=== PATIENT | female | born 1950 | race Caucasian/White ===

== ENCOUNTER 2016-09-02 07:15 | Inpatient (IN) | payer OTHER, BC ==
--- NOTE | 2016-08-04 09:23 | HISTORY & PHYSICAL EXAMINATION ---
DATE OF ADMISSION: 09/02/2016 PROCEDURE: Left knee replacement. HISTORY OF PRESENT ILLNESS: The patient is a beny 66-year-old female who presents for preoperative evaluation prior to left knee replacement. She states she has been having pain in this knee for several years now which has gradually worsened, it has now gotten to the point it is affecting her daily activities including walking, standing, going up and down steps. She has tried previous cortisone injection as well as viscosupplementation without relief, has worn a brace as well as had previous knee arthroscopy in 2014. At this point in time, has failed conservative measures and would like to proceed with a left knee replacement. PAST MEDICAL HISTORY: 1. Hypertension. 2. GERD. 3. High cholesterol. 4. History of pulmonary embolism in 09/2015, related to malfunction of her chemo pump and was treated with 6 months of Coumadin. PAST SURGICAL HISTORY: 1. History of diagnostic laparoscopy with right hemicolectomy and instillation of heated chemo. 2. History of cystoscopy, right retrograde pyelogram, right ureteral stent placement. 3. Left cataract surgery. 4. Right cataract surgery. 5. Total abdominal hysterectomy. 6. Cystocele repair. 7. Right knee arthroscopy. 8. Appendectomy. ALLERGIES: No known drug allergies. MEDICATIONS: 1. Losartan 50 mg daily. 2. Omeprazole 20 mg daily. 3. Atorvastatin 10 mg daily. 4. Zofran 8 mg as needed. 5. Calcium with vitamin D. 6. Multivitamin. 7. Imodium. 8. Vitamin B12. 9. Potassium chloride 20 mEq daily. FAMILY HISTORY: Noncontributory. SOCIAL HISTORY: The patient is , lives in a 2-story home with her . She is retired. REVIEW OF SYSTEMS: Otherwise negative. Please see HPI for pertinent positives. PHYSICAL EXAMINATION: GENERAL: Beny 66-year-old female in no acute distress, alert and oriented x3. She is 5 feet 2 inches, weighs 146 pounds. VITAL SIGNS: Blood pressure is 128/76, pulse 74. HEENT: Normocephalic, atraumatic. CARDIAC: Regular rate and rhythm. No murmurs or gallops appreciated. Resting pulse 74 beats per minute. LUNGS: Clear to auscultation without rales or wheeze bilaterally. ABDOMEN: Soft, nontender. Bowel sounds present. EXTREMITIES: Left lower extremity is neurovascularly intact. Calves are soft and nontender. DP pulse +2. Demonstrates good quad tone. Straight leg raise without lag. No erythema or warmth. Has mild effusion. Positive crepitation with motion. Range of motion is 0/3/120. IMAGING: Reviewed of the left knee showed findings consistent with degenerative joint disease including joint space narrowing, subchondral sclerosis, peripheral osteophytes noted, overall has varus alignment. IMPRESSION: 1. Left knee degenerative joint disease. 2. Past medical history as outlined above. PLAN: Further care discussed with the patient. At this point in time, has failed conservative measures and would like to proceed with left knee replacement, is scheduled for 09/02/2016. Will obtain cardiac clearance, scheduled for 08/05/2016. Also has a history of pulmonary embolism in 09/2015 which was related to a malfunction of her chemo pump, has finished her Coumadin. We will plan on discharge home with home health physical therapy.
[2016-08-04 13:01] VITALS: BMI 27.0
--- NOTE | 2016-08-04 13:49 | PAT Medication Instructions ---
Service Date Aug 04, 2016. Current Home Medication List Atorvastatin (Lipitor), 10 MG PO QPM Calcium Carbonate-Vitamin D W/ (Caltrate 600 Plus), 1,200 MG PO QAM Cyanocobalamin (Vitamin B12 500MCG), 500 MCG PO QAM Lactobacillus-Inulin (Culturelle), 1 CAP PO QAM Loperamide Hcl (Imodium), 2 MG PO PRN Losartan Potassium (Cozaar), 50 MG PO QPM Methenamine Hippurate (Hiprex), 0.5 TAB PO HS Multivitamins/Minerals (Mvi With Minerals), 1 TAB PO QAM Nitrofurantoin Monohyd Macrocr (Macrobid), 100 MG PO QPM Omeprazole (Prilosec), 20 MG PO QAM Ondansetron Hcl (Zofran), 8 MG PO TID PRN for Nausea Potassium Ext Rel (Klor-Con), 20 MEQ PO QPM Medication Instructions For Your Scheduled Surgery - Hold the following medications the morning of surgery: Multivitamins/Minerals (Mvi With Minerals), 1 TAB PO QAM Lactobacillus-Inulin (Culturelle), 1 CAP PO QAM Calcium Carbonate-Vitamin D W/ (Caltrate 600 Plus), 1,200 MG PO QAM Cyanocobalamin (Vitamin B12 500MCG), 500 MCG PO QAM Loperamide Hcl (Imodium), 2 MG PO PRN - Take the following medications the morning of surgery with a sip of water OTHERWISE NOTHING TO EAT OR DRINK AFTER MIDNIGHT: Omeprazole (Prilosec), 20 MG PO QAM Ondansetron Hcl (Zofran), 8 MG PO TID PRN for Nausea - Take the following medications as scheduled the night before surgery: Atorvastatin (Lipitor), 10 MG PO QPM Potassium Ext Rel (Klor-Con), 20 MEQ PO QPM Ondansetron Hcl (Zofran), 8 MG PO TID PRN for Nausea Methenamine Hippurate (Hiprex), 0.5 TAB PO HS Nitrofurantoin Monohyd Macrocr (Macrobid), 100 MG PO QPM - Do Not take the following medications the night before surgery: Losartan Potassium (Cozaar), 50 MG PO QPM If you have any questions please call us at [phone] or [phone] or [phone]
[2016-08-04 15:00] LABS: BASO % 0.5 %; BASO ABS # 0.02 K/uL (0-0.2); COMPLETE YES; EOS % 2.7 %; HEMATOCRIT 35.2 % (37-47); IG% 0.2 %; LYMPH % 37.7 %; LYMPH ABS # 1.52 K/uL (1.2-3.4); MEAN CELL VOLUME 97.5 fL (80-100); MEAN CORPUSCULAR HEMOGLOBIN 34.6 pg (25-34); MEAN CORPUSCULAR HGB CONC 35.5 g/dl (32-36); MEAN PLATELET VOLUME 8.6 fL (7.4-10.4); MONO % 10.9 %; PLATELET COUNT 251 K/uL (130-400); RED BLOOD COUNT 3.61 M/uL (4.2-5.4); WHITE BLOOD COUNT 4.03 K/uL (4.8-10.8)
[2016-08-04 15:04] LABS: URINE APPEARANCE CLEAR (CLEAR); URINE BILIRUBIN NEG (NEG); URINE COLOR YELLOW; URINE NITRITE NEG (NEG); URINE PH 5.5 (4.5-7.5); URINE SPECIFIC GRAVITY 1.011 (1.000-1.030); UROBILINOGEN NEG (NEG); ZZUR CULT IF INDIC CLEAN CATCH NO
[2016-08-04 15:05] LABS: MANUAL MICROSCOPIC REQUIRED? NO; REVIEW REQ? NO
[2016-08-04 15:58] LABS: BUN/CREATININE RATIO 19.1 (10-20); CREATININE 0.75 mg/dl (0.60-1.20); POTASSIUM 3.8 mmol/L (3.5-5.1)
[2016-08-04 16:12] LABS: CALCIUM 9.4 mg/dl (8.5-10.1)
[2016-08-05 05:57] LABS: ESTIMATED AVERAGE GLUCOSE 103 mg/dl; HA1C FLAG Normal (Normal)
[~2016-09-02] VITALS: Ht 157.5 cm; Wt 66.6 kg
[2016-09-02] VITALS (8 sets, daily range): BP systolic 105–162; BP diastolic 56–82; PULSE 43–61; TEMP 36.2–36.7; O2SAT 96–100; Ht 157.5 cm; Wt 66.6 kg
[2016-09-02] MEDS: TRANEXAMIC ACID INJ 1,000 MG in SODIUM CHLORIDE 0.9% 100ML 100 ML IV SCH ×2 (06:30→08:23)
[~2016-09-02 07:15] MED LIST: ACETAMINOPHEN 500 MG TAB PO SCH; ATOR10TA88 PO; CALCTAB7 PO; CEFAZOLIN 2000 MG/60 ML D5W 60 ML IV SCH; CYAN500T13 PO; CeleBREX 200 MG CAP PO SCH; DEXAMETHASONE 4 MG TAB PO SCH; FAMOTIDINE 20 MG TAB PO SCH; GABAPENTIN 300 MG CAP PO SCH; IMD/2 PO; LACT10CA3 PO; LACTATED RINGER'S 1000ML 1,000 ML IV SCH; LACTATED RINGER'S 1000ML 500 ML IV ONE; LACTATED RINGER'S 1000ML IV SCH; LOSA50TA6 PO; METH-1117 PO; METOCLOPRAMIDE HCL 10 MG TAB PO SCH; MULT-513 PO; NITR-5 PO; ONDA4TAB46 PO; POTA20TA16 PO; PRLSR20 PO; ROPIVACAINE 5MG/ML 30 ML 150 MG, BUPIVACAINE/EPINEPHR 0.5% MPF 30 ML, KETOROLAC TROMETH... INFIL SCH
[2016-09-02] MEDS ORDERED: BUPIVACAINE 0.5 % 5 MG/1 ML PF 10ML VIAL ONE (07:16)
[2016-09-02] MEDS ORDERED: BUPIVACAINE 0.25% 30 ML VIAL ONE (07:17)
[2016-09-02] MEDS ORDERED: ASPI325T45 PO (08:07)
[2016-09-02] MEDS ORDERED: MIDAZOLAM HCL 1 MG/ML 2ML VIAL ONE (08:14)
[2016-09-02] MEDS ORDERED: FENTANYL CITRATE INJ 50 MCG/1 ML 2 ML VIAL ONE (08:14)
--- NOTE | 2016-09-02 08:20 | History & Physical Bridge Note ---
H&P Re-Evaluation Bridge Note: I have examined the patient, reviewed the History & Physical and in the interval since the performance of the History & Physical I have noted the following changes of clinical significance: No changes noted
[2016-09-02] MEDS ORDERED: POVIDONE-IODINE OP SOLN 30 ML BTL ONE (08:48)
[2016-09-02] MEDS ORDERED: ORTHO JOINT ANESTHETIC ONE (08:48)
[2016-09-02] MEDS ORDERED: BACITRACIN 50000 UNIT VIAL ONE (08:49)
[2016-09-02] MEDS ORDERED: PROPOFOL IV EMULSION 10 MG/ML 20 ML VIAL IV ONE (09:57)
[2016-09-02] MEDS ORDERED: ONDANSETRON INJ 2 MG/ML 2 ML VIAL IV PRN (10:30)
[2016-09-02] MEDS ORDERED: EpHEDrine SULFATE INJ 50 MG/ML AMP IV PRN (10:30)
[2016-09-02] MEDS ORDERED: KETOROLAC TROMETHAMINE 30 MG/ML VIAL IV. PRN (10:30)
[2016-09-02] MEDS ORDERED: ATROPINE SULFATE 0.1 MG/ML 5ML SYR IV PRN (10:30)
[2016-09-02] MEDS ORDERED: HYDROmorphone INJ 2 MG/ML SYR/VIAL IV PRN (10:30)
[2016-09-02] MEDS ORDERED: PHENYLEPHRINE 100MCG/ML 5ML SYR IV PRN (10:30)
--- NOTE | 2016-09-02 10:33 | [facility] Operative Report ---
Operative Report Operative Date Sep 02, 2016. Pre-Operative Diagnosis Left Knee Degenerative Joint Disease Post-Operative Diagnosis Same as preop Procedure(s) Performed Left Total Knee Arthrhoplasty [facility] journey to non-block/3 femur 3 tibia 13 poly-[address] Summers Health Care Manager Surgeon(s) Luis Mirza PA-C Estimated Blood Loss 5 ml Findings Severe end-stage DJD left knee Specimens A. Left Knee Bone and Tissue Complication(s) None Disposition Recovery Room / PACU Indications Patient felt into conservative management and physical therapy injections bracing and anti-inflammatories percents returning orthoplastic thorough discussion of risks and complications Description of Procedure After proper prepping and draping of the left lower extremity anterior midline incision was made over the region of the extensor extensor mechanism after meticulous hemostasis was obtained and maintained in subcutaneous tissues a medial parapatellar incision was made The patella was subluxed lateralward the medial lateral gutter were cleaned from any hypertrophic synovitis and scar tissue of the distal femoral block was placed and the distal femoral osteotomy cut was made subsequently the chamfers anterior and posterior osteotomy cuts were made utilizing the 4-in-1 block the tibia was subsequently subluxed anteriorward medial and ateral meniscal remnants were excised in their entirety remnants of the anterior and posterior cruciate ligaments were excised in their entirety excellent exposure of the proximal tibia was obtained the tibial osteotomy guide was placed on the proximal tibial osteotomy cut was made once again the knee was irrigated with copious amounts of sterile saline solution the patella was subsequently everted lateralward thickened scar tissue around the patella was removed the patella was subsequently cut utilizing a freehand technique and was drilled prepared for final preparation and placement of patella socially flexion-extension gaps were checked and the equal and symmetric trials were placed to the appropriate femoral and tibial trials with poly-spacer being placed for equal flexion and extension gaps and full range of motion including extension to 0 and flexion to 140 the trial components after having been taken to recovery range of motion was subsequently removed meticulous hemostasis was obtained and maintained subsequently a knee block injection of joint cocktail including ropivacaine 0.5% 150 mg. Bupivacaine 0.5 % epinephrine 1-200,030 mL's toradol 30 mg dexamethasone 4 mg ketamine 10 mg clonidine 100 micrograms normal saline solution 30 mg was infiltrated into the soft tissues of the posterior knee medial lateral gutters and periosteal synovium special attention was paid to protect neurovascular structures at all times subsequently trial components having been removed the knee was irrigated with sterile saline solution. debris was removed the proximal tibia was subsequently prepared and was made ready for the placement of the tibial component tibial component was also cemented and tamped into position the femoral component was subsequently placed and cemented in the position the patellar component was subsequently cemented in position because hemostasis once again obtained and maintained wound having been thoroughly irrigated with debridement and debridement lavage was performed as well as a medial parapatellar incision closed with #1 Vicryl in interrupted fashion subcutaneous was closed with #2 Vicryl skin was closed with skin clips. PA-C was necessary for prepping and drapping as well as wound closure of deep fascia Sub cutaneous tissue and skin and was necessary for the case. A sterile compressive dressing was placed patient was taken to recovery in stable condition of report dictated by Kristopher I attest to the content of the Intraoperative Record and any orders documented therein. Any exceptions are noted below. I attest to the content of the Intraoperative Record and any orders documented therein. Any exceptions are noted below.
[2016-09-02] MEDS ORDERED: MAGNESIUM HYDROXIDE SUSP 30 ML UDC PO PRN (11:15)
[2016-09-02] MEDS ORDERED: SOD PHOSPHATE/SOD BIPHOSPHATE ENEMA 132 ML BTL PR PRN (11:15)
[2016-09-02] MEDS ORDERED: MoRPHine SULFATE 2 MG/ML CARP IV PRN (11:15)
[2016-09-02] MEDS ORDERED: ZOLPIDEM TARTRATE 5 MG TAB PO PRN (11:15)
[2016-09-02] MEDS ORDERED: KETOROLAC TROMETHAMINE 15 MG/ML VIAL IV PRN (11:15)
[2016-09-02] MEDS ORDERED: BISACODYL 10 MG SUPP PR PRN (11:15)
[2016-09-02] MEDS ORDERED: ALUMINUM/MAGNESIUM/SIMETH (MAALOX MAX) 30 ML UDC PO PRN (11:15)
--- NOTE | 2016-09-02 11:51 | Anesthesiology Progress Note ---
Anesthesia Post Op Note Date & Time Sep 02, 2016 at 11:51 Vital Signs Pain Intensity: 0 Vital Signs Past 12 Hours Date Time Temp Pulse Resp B/P (MAP) Pulse Ox O2 Delivery O2 Flow Rate FiO2 09/02/16 11:47 36.4 09/02/16 11:46 123/64 09/02/16 11:45 47 15 99 09/02/16 11:45 46 15 09/02/16 11:41 114/63 09/02/16 11:40 48 16 09/02/16 11:40 48 16 97 09/02/16 11:39 48 12 98 09/02/16 11:39 48 12 09/02/16 11:37 117/61 09/02/16 11:34 50 18 09/02/16 11:34 50 18 100 09/02/16 11:31 136/66 09/02/16 11:29 53 12 09/02/16 11:29 52 12 100 09/02/16 11:26 108/62 09/02/16 11:24 53 12 09/02/16 11:24 52 12 100 09/02/16 11:21 119/64 09/02/16 11:19 53 12 100 09/02/16 11:19 53 12 09/02/16 11:16 98/61 09/02/16 11:14 58 15 09/02/16 11:14 54 15 100 09/02/16 11:13 117/63 09/02/16 11:11 110/62 09/02/16 11:10 116/61 09/02/16 11:09 36.6 58 18 116/62 99 Mask 10 09/02/16 11:09 62 09/02/16 11:09 62 93 09/02/16 07:43 36.7 61 20 162/82 98 Room Air Notes Mental Status: alert / awake / arousable, participated in evaluation Pt Amnestic to Procedure: Yes Nausea / Vomiting: adequately controlled Pain: adequately controlled Airway Patency, RR, SpO2: stable & adequate BP & HR: stable & adequate Hydration State: stable & adequate Anesthetic Complications: no major complications apparent
--- NOTE | 2016-09-02 12:04 | DIAGNOSTIC IMAGING REPORT ---
LEFT KNEE 1 OR 2 VIEWS ROUTINE CLINICAL HISTORY: AP/LATERAL IN PACU LEFT KNEE postoperative evaluation COMPARISON: None. DISCUSSION: Total left knee arthroplasty. Good contact between prosthetic and underlying bone. Surgical drains are in position. Expected soft tissue postoperative change IMPRESSION: Anatomic alignment status post total left knee replacement The above report was generated using voice recognition software. It may contain grammatical, syntax or spelling errors. Electronically signed by: Luis Saldaña M.D. 09/02/2016 12:03 PM Dictated Date/Time: 09/02/2016 12:03 PM
[2016-09-02] MEDS ORDERED: MoRPHine SULFATE 4 MG/ML 1 ML CARP\\VIAL IV PRN (12:45)
[2016-09-02] MEDS ORDERED: MoRPHine SULFATE 10 MG/ML CARP/VIAL IV PRN (12:45)
[2016-09-02] MEDS: D5W AND 1/2NSS + 20MEQ KCL 1,000 ML IV SCH ×2 (13:29→23:02)
[2016-09-02] MEDS: ACETAMINOPHEN 500 MG TAB PO SCH ×2 (15:10→21:56)
[2016-09-02] MEDS: CEFAZOLIN IV 1,000 MG in DEXTROSE 5% 50ML 50 ML IV SCH (18:13)
[2016-09-02] MEDS: OXYCODONE HCL IR 5 MG TAB (IMMEDIATE RELEASE) PO PRN (18:47)
[2016-09-02] MEDS: POTASSIUM CHLORIDE 20 MEQ TABCR PO SCH (21:34)
[2016-09-02] MEDS: NITROFURANTOIN MONOHYDRATE 100 MG CAP PO SCH (21:34)
[2016-09-02] MEDS: OXYCODONE HCL 10 MG TABCR (OXYCONTIN) PO SCH (21:34)
[2016-09-02] MEDS: ASPIRIN 325 MG ECTAB PO SCH (21:35)
[2016-09-02] MEDS: ATORVASTATIN 10 MG TAB PO SCH (21:36)
[2016-09-02] MEDS: SENNA 8.6 MG TAB PO SCH (21:36)
[2016-09-02] MEDS: DOCUSATE SODIUM 100 MG CAP PO SCH (21:37)
[2016-09-02] MEDS: LOSARTAN POTASSIUM 50 MG TAB PO SCH (21:37)
[2016-09-02] MEDS: METHENAMINE HIPPURATE 1 GM TAB PO SCH (21:38)
[2016-09-03] VITALS (7 sets, daily range): BP systolic 103–130; BP diastolic 51–71; PULSE 50–78; TEMP 36.4–36.9; O2SAT 96–100
[2016-09-03] MEDS: CEFAZOLIN IV 1,000 MG in DEXTROSE 5% 50ML 50 ML IV SCH (02:13)
[2016-09-03] MEDS: OXYCODONE HCL IR 5 MG TAB (IMMEDIATE RELEASE) PO PRN ×3 (02:20→15:55)
[2016-09-03] MEDS: ACETAMINOPHEN 500 MG TAB PO SCH ×3 (05:53→21:09)
[2016-09-03 06:46] LABS: HEMATOCRIT 28.6 % (37-47); MEAN CELL VOLUME 97.9 fL (80-100); MEAN CORPUSCULAR HEMOGLOBIN 34.6 pg (25-34); MEAN CORPUSCULAR HGB CONC 35.3 g/dl (32-36); MEAN PLATELET VOLUME 7.9 fL (7.4-10.4); PLATELET COUNT 183 K/uL (130-400); RED BLOOD COUNT 2.92 M/uL (4.2-5.4); WHITE BLOOD COUNT 12.87 K/uL (4.8-10.8)
[2016-09-03 06:51] LABS: PROTHROMBIN TIME (PATIENT) 10.8 SECONDS (9.0-12.0)
[2016-09-03 07:20] LABS: BUN/CREATININE RATIO 20.3 (10-20); CALCIUM 8.7 mg/dl (8.5-10.1); CREATININE 0.74 mg/dl (0.60-1.20); POTASSIUM 4.5 mmol/L (3.5-5.1)
--- NOTE | 2016-09-03 08:02 | Anesthesiology Progress Note ---
Anesthesia Post Op Note Date & Time Sep 03, 2016 at 08:02 Vital Signs Pain Intensity: 7.0 Vital Signs Past 12 Hours Date Time Temp Pulse Resp B/P (MAP) Pulse Ox O2 Delivery O2 Flow Rate FiO2 09/03/16 04:32 36.4 56 14 104/61 (75) 98 Room Air 09/02/16 23:40 Room Air 09/02/16 22:56 36.6 51 14 105/60 (75) 97 Room Air 09/02/16 20:41 36.6 54 18 118/71 (87) 98 Room Air Notes Mental Status: alert / awake / arousable, participated in evaluation Pt Amnestic to Procedure: Yes Nausea / Vomiting: adequately controlled Pain: adequately controlled Airway Patency, RR, SpO2: stable & adequate BP & HR: stable & adequate Hydration State: stable & adequate Anesthetic Complications: no major complications apparent
[2016-09-03] MEDS: DOCUSATE SODIUM 100 MG CAP PO SCH ×2 (08:31→21:12)
[2016-09-03] MEDS: MULTIVITAMIN TAB PO SCH (08:32)
[2016-09-03] MEDS: PANTOprazole SOD 40 MG TAB PO SCH (08:32)
[2016-09-03] MEDS: CYANOCOBALAMIN 500 MCG TAB (VIT B-12) PO SCH (08:32)
[2016-09-03] MEDS: ASPIRIN 325 MG ECTAB PO SCH ×2 (08:32→21:12)
[2016-09-03] MEDS: OXYCODONE HCL 10 MG TABCR (OXYCONTIN) PO SCH ×2 (08:35→21:09)
[2016-09-03] MEDS: D5W AND 1/2NSS + 20MEQ KCL 1,000 ML IV SCH (09:36)
--- NOTE | 2016-09-03 11:50 | Orthopedic Progress Note ---
Orthopedic Progress Note Date of Service Sep 03, 2016. Subjective Post OP Day: 1 (s/p left TKA) Reports: feeling well, pain controlled w PO medications, Denies: complaints, chest pain, SOB, nausea / vomiting, light headedness, calf pain Objective calves soft nontender, N/V intact, capillary refill less than 2 sec., dressing C /D/I, A&O x3, toes mobile Date Time Temp Pulse Resp B/P (MAP) Pulse Ox O2 Delivery O2 Flow Rate FiO2 09/03/16 09:17 97 Room Air 09/03/16 09:15 36.7 52 18 118/68 (85) 97 Room Air 09/03/16 08:00 Room Air 09/03/16 04:32 36.4 56 14 104/61 (75) 98 Room Air 09/02/16 23:40 Room Air 09/02/16 22:56 36.6 51 14 105/60 (75) 97 Room Air 09/02/16 20:41 36.6 54 18 118/71 (87) 98 Room Air 09/02/16 16:00 Room Air 09/02/16 15:13 36.2 55 18 115/64 (81) 100 Room Air 09/02/16 14:07 36.5 48 18 115/73 (87) 100 Nasal Cannula 2.0 09/02/16 13:17 36.4 56 18 110/70 (83) 99 Nasal Cannula 2.0 09/02/16 12:37 36.7 43 17 111/60 (77) 99 Nasal Cannula 2.0 09/02/16 12:10 96 Mask 2.0 09/02/16 12:10 96 Oxymask 2.0 09/02/16 12:10 36.3 56 18 131/56 (81) 96 Oxymask 2.0 09/02/16 11:57 45 19 128/61 100 09/02/16 11:57 45 19 09/02/16 11:52 47 16 09/02/16 11:52 46 16 122/62 100 Laboratory Results 24 Hours: Test 09/03/16 06:27 Hematocrit 28.6 % Hemoglobin 10.1 g/dL Prothromb Time International Ratio 1.0 Prothrombin Time 10.8 SECONDS Assessment & Plan Assessment: pod #1 sp left tka -pt/ot dvt proph jasper/scd/asa plan for dc home with HHPT 1. Hypertension. 2. GERD. 3. High cholesterol. 4. History of pulmonary embolism in 09/2015, related to malfunction of her chemo pump and was treated with 6 months of Coumadin. Inhouse Planning DVT Prophylaxis: José Miguel SCDs, ASA Discharge Planning Discharge Planning: home with home health DVT Prophylaxis: José Miguel SCDs ASA Therapy: Physical Therapy
[2016-09-03] MEDS: ONDANSETRON INJ 2 MG/ML 2 ML VIAL IV PRN (13:38)
--- NOTE | 2016-09-03 17:35 | Discharge Instructions ---
Discharge Instructions Date of Service Sep 03, 2016. Admission Reason for Admission: Left Knee Osteoarthritis Discharge Discharge Diagnosis / Problem: left knee replacement Discharge Goals Goal(s): Decrease discomfort, Improve function, Increase independence Activity Recommendations Activity Limitations: as noted below Weightbearing Status: Left weightbearing (as tolerated) . Instructions / Follow-Up Instructions / Follow-Up ACTIVITY RECOMMENDATIONS: SELF CARE INSTRUCTIONS AFTER TOTAL KNEE REPLACEMENT A. You may need to continue a physical therapy program after discharge from the hospital. There are several options available to you. Your doctor will assist you in selecting the best one for you. 1. An out-patient facility 2 to 3 times a week for therapy or home therapy. 2. Continue working on all exercises taught to you in the hospital. Your goals should be to increase bending of your knee to 90 degrees and beyond and to fully straighten your knee. B. You may progress at your own pace from walking with a walker or crutches to a cane; then to no assistive devices. C. Make walking a part of your daily routine. Be up as much as comfortable with rest periods throughout the day. Rest with leg elevation is very important. Use the ice wrap frequently for the first 3-4 weeks. D. There are no restrictions on activities. You may ride in a car, shop, participate in health information provider and all social activities. E. Wear the long elastic stockings (VIKRAM hose) 20 hours a day for 2 weeks after surgery. They can be removed several times a day for laundering and for a bath. F. You may shower, no tub baths until cleared by your doctor. SPECIAL CARE INSTRUCTIONS: VERY IMPORTANT TO READ AND REVIEW A. There are a few signs you need to watch for after you are home. Call [facility] if you notice any of the followin. Increased severe knee pain. Some pain is expected especially when you exercise. 2. Increased swelling in your leg or knee; pain or swelling of the calf muscle in either lower leg. 3. Any fluid drainage from the incision. 4. Shortness of breath or chest pain. B. Please call [facility] at if you have any concerns or questions about your operation or recovery. The doctor or his nurse will return your call promptly. C. You must take antibiotics before dental work, bladder, bowel or other surgery. Your doctor will provide you with a permanent care to carry describing this precaution. IMPORTANT: * REMEMBER TO TAKE ASPIRIN, 81 MG, TWICE DAILY FOR 4 WEEKS UNLESS OTHERWISE DIRECTED. THIS IS YOUR BLOOD THINNER. * HIGH RISK PATIENTS MAY BE PRESCRIBED A STRONGER BLOOD THINNER. THIS WILL BE PROVIDED AT DISCHARGE. * CALL IF INCREASED PAIN, REDNESS, DRAINAGE OR FEVER GREATER THAT 101. * WEAR VIKRAM HOSE 20 HOURS PER DAY FOR 2 WEEKS. DERMABOND Prineo- This is a mesh tape dressing that is covered with glue. It should remain in place until the incision is properly healed, usually 10-14 days. This dressing is designed to naturally slough off. You may trim the excess mesh tape as it peels off. Incision may be briefly wet in a shower. Dry immediately by blotting with a clean, dry towel. Do not bath or swim until instructed by your doctor. Do not scratch, rub, or pick at the dressing. Do not apply any topical ointments or lotions until dressing is completely removed and/or instructed by your doctor. There may be a small piece of suture material at one end of your incision. Do not pull or trim this. If it is bothersome or catching on clothing, you may cover it with a band-aid. FOLLOW UP VISIT: If appointment is not already scheduled: Please call [facility] to make a follow-up appointment for 2 weeks after your surgery at . Current Hospital Diet Patient's current hospital diet: Regular Diet Discharge Diet Recommended Diet: Regular Diet Procedures Procedures Performed: Left Total Knee Arthrhoplasty [facility] journey to nonblock/3 femur 3 tibia 13 poly-29 oval patella Pending Studies Studies pending at discharge: no Laboratory Results Hemoglobin A1c Test 08/04/16 13:55 Range/Units Estimated Average Glucose 103 mg/dl Hemoglobin A1c 5.2 4.5-5.6 % Medical Emergencies . Who to Call and When: Medical Emergencies: If at any time you feel your situation is an emergency, please call 911 immediately. . Non-Emergent Contact Non-Emergency issues call your: Primary Care Provider, Surgeon . "Provider Documentation" section prepared by Luis Mirza. . VTE Core Measure Inpt VTE Proph given/why not?: Other Anticoagulation (ASA 81mg po bid x 1 month ), TAshlie Koenig, SCD's [place] Drug Monitoring Program Search Results: patient reviewed within database, no issues identified
[2016-09-03] MEDS: POTASSIUM CHLORIDE 20 MEQ TABCR PO SCH (21:10)
[2016-09-03] MEDS: METHENAMINE HIPPURATE 1 GM TAB PO SCH (21:10)
[2016-09-03] MEDS: NITROFURANTOIN MONOHYDRATE 100 MG CAP PO SCH (21:10)
[2016-09-03] MEDS: SENNA 8.6 MG TAB PO SCH (21:11)
[2016-09-03] MEDS: ATORVASTATIN 10 MG TAB PO SCH (21:12)
[2016-09-03] MEDS: LOSARTAN POTASSIUM 50 MG TAB PO SCH (21:13)
[2016-09-04] MEDS: OXYCODONE HCL IR 5 MG TAB (IMMEDIATE RELEASE) PO PRN ×2 (03:39→08:05)
[2016-09-04] MEDS: ACETAMINOPHEN 500 MG TAB PO SCH ×2 (06:01→14:12)
[2016-09-04 06:03] VITALS: BP 154/69; PULSE 64; TEMP 36.9; O2SAT 100
[2016-09-04] MEDS: OXYCODONE HCL 10 MG TABCR (OXYCONTIN) PO SCH (08:04)
[2016-09-04] MEDS: ASPIRIN 325 MG ECTAB PO SCH (08:06)
[2016-09-04] MEDS: PANTOprazole SOD 40 MG TAB PO SCH (08:06)
[2016-09-04] MEDS: CYANOCOBALAMIN 500 MCG TAB (VIT B-12) PO SCH (08:06)
[2016-09-04] MEDS: DOCUSATE SODIUM 100 MG CAP PO SCH (08:06)
[2016-09-04] MEDS: MULTIVITAMIN TAB PO SCH (08:07)
[2016-09-04 08:15] VITALS: BP 158/88; PULSE 58; TEMP 36.8; O2SAT 100
[2016-09-04 08:19] VITALS: O2SAT 100
[2016-09-04] MEDS: ONDANSETRON INJ 2 MG/ML 2 ML VIAL IV PRN (11:12)
--- NOTE | 2016-09-04 12:22 | Orthopedic Progress Note ---
Orthopedic Progress Note Date of Service Sep 04, 2016. Subjective Post OP Day: 2 Reports: feeling well Objective calves soft nontender, N/V intact, incision C/D/I, toes mobile Date Time Temp Pulse Resp B/P (MAP) Pulse Ox O2 Delivery O2 Flow Rate FiO2 09/04/16 08:19 100 Room Air 09/04/16 08:15 36.8 58 16 158/88 (111) 100 Room Air 09/04/16 07:59 Room Air 09/04/16 06:03 36.9 64 19 154/69 (97) 100 Room Air 09/03/16 23:30 36.9 59 16 112/51 (71) 98 Room Air 09/03/16 23:18 Room Air 09/03/16 16:00 Room Air 09/03/16 15:43 36.7 50 16 130/71 (90) 98 Room Air 09/03/16 14:45 36.8 78 16 103/65 (78) 96 Nasal Cannula 2.0 Assessment & Plan Assessment: pod #2 sp left tka -pt/ot dvt proph jasper/scd/asa plan for dc home with HHPT 1. Hypertension. 2. GERD. 3. High cholesterol. 4. History of pulmonary embolism in 09/2015, related to malfunction of her chemo pump and was treated with 6 months of Coumadin. Inhouse Planning DVT Prophylaxis: TEDs, SCDs, ASA Discharge Planning Discharge Planning: home with home health DVT Prophylaxis: TEDs, SCDs, ASA Therapy: Physical Therapy
[2016-09-04] MEDS ORDERED: ACET-24 PO (12:24)
[2016-09-04] MEDS ORDERED: CLB200 PO (12:24)
[2016-09-04] MEDS ORDERED: RXC5 PO (12:24)
[2016-09-04] MEDS ORDERED: OXYSR10 PO (12:24)
[2016-09-04 13:31] VITALS: BP 158/88; PULSE 58; TEMP 36.8; O2SAT 100
--- NOTE | 2016-09-04 19:05 | Discharge Summary ---
Orthopedic Discharge Summary Admission Date/Reason Sep 02, 2016 at 08:00 Left Knee Osteoarthritis. Discharge Date/Disposition Sep 04, 2016 Home with services Diagnosis Principal Diagnosis: Left Knee Osteoarthritis Procedure(s) Performed Left Total Knee Arthrhoplasty [facility] journey to non-block/3 femur 3 tibia 13 poly-29 oval patella Consultations NONE Medication Reconciliation New Medications: Acetaminophen (Sb Non-Aspirin Extra Stre) 500 Mg Tab 1000 MG PO Q8H for 30 Days, TAB Celecoxib (Celebrex) 200 Mg Cap 200 MG PO BID, #60 CAP Oxycodone HCl (Oxycontin) 10 Mg Tabcr 10 MG PO Q12, #20 Oxycodone HCl (Oxycodone HCl) 5 Mg Tab 5-10 MG PO Q4-6 PRN for Pain, #60 TAB Continued Medications: Aspirin (Aspirin) 325 Mg Tab 325 MG PO BID Atorvastatin (Lipitor) 10 Mg Tab 10 MG PO QPM Calcium Carbonate-Vitamin D W/ (Caltrate 600 Plus) 1 Tab Tab 1200 MG PO QAM, TAB Cyanocobalamin (Vitamin B12 500MCG) 500 Mcg Tab 500 MCG PO QAM, TAB Lactobacillus-Inulin (Culturelle) 1 Cap Cap 1 CAP PO QAM Loperamide Hcl (Imodium) 2 Mg Cap 2 MG PO PRN, CAP Losartan Potassium (Cozaar) 50 Mg Tab 50 MG PO QPM, TAB Methenamine Hippurate (Hiprex) 1 Gm Tab 0.5 TAB PO HS Multivitamins/Minerals (Mvi With Minerals) Tab 1 TAB PO QAM, TAB Nitrofurantoin Monohyd Macrocr (Macrobid) 100 Mg Cap 100 MG PO QPM, #6 CAP Omeprazole (Prilosec) 20 Mg Capcr 20 MG PO QAM, CAP Ondansetron Hcl (Zofran) 4 Mg Tab 8 MG PO TID PRN for Nausea PT ALTERNATES WITH COMPAZINE Potassium Ext Rel (Klor-Con) 20 Meq Tabcr 20 MEQ PO QPM, TAB Admission Physical Exam As per Admitting History & Physical. Hospital Course Patient was a same day admission after undergoing a successful left TKA. she tolerated the procedure well. Post-operatively, her activity was progressed and well tolerated. Please refer to daily progress notes and PT notes for complete details. After exam on 09/04/16, patient felt to be stable for discharge home with HHPT. Patient will f/u in the office in 2 weeks for further evaluation including x-rays and incision check, sooner if having any issues or concerns. Below are pertinent labs/studies during their hospital stay: Last Vital Signs Documentation Date Time Temp Pulse Resp B/P (MAP) Pulse Ox O2 Delivery O2 Flow Rate FiO2 09/04/16 13:31 36.8 58 16 100 Room Air 09/04/16 08:15 158/88 (111) 09/03/16 14:45 2.0 Last Resulted CBC 09/03/16 06:27 Last Resulted BMP 09/03/16 06:27 Discharge Instructions ACTIVITY RECOMMENDATIONS: SELF CARE INSTRUCTIONS AFTER TOTAL KNEE REPLACEMENT A. You may need to continue a physical therapy program after discharge from the hospital. There are several options available to you. Your doctor will assist you in selecting the best one for you. 1. An out-patient facility 2 to 3 times a week for therapy or home therapy. 2. Continue working on all exercises taught to you in the hospital. Your goals should be to increase bending of your knee to 90 degrees and beyond and to fully straighten your knee. B. You may progress at your own pace from walking with a walker or crutches to a cane; then to no assistive devices. C. Make walking a part of your daily routine. Be up as much as comfortable with rest periods throughout the day. Rest with leg elevation is very important. Use the ice wrap frequently for the first 3-4 weeks. D. There are no restrictions on activities. You may ride in a car, shop, participate in water engineer and all social activities. E. Wear the long elastic stockings (VIKRAM hose) 20 hours a day for 2 weeks after surgery. They can be removed several times a day for laundering and for a bath. F. You may shower, no tub baths until cleared by your doctor. SPECIAL CARE INSTRUCTIONS: VERY IMPORTANT TO READ AND REVIEW A. There are a few signs you need to watch for after you are home. Call [facility] if you notice any of the followin. Increased severe knee pain. Some pain is expected especially when you exercise. 2. Increased swelling in your leg or knee; pain or swelling of the calf muscle in either lower leg. 3. Any fluid drainage from the incision. 4. Shortness of breath or chest pain. B. Please call [facility] at if you have any concerns or questions about your operation or recovery. The doctor or his nurse will return your call promptly. C. You must take antibiotics before dental work, bladder, bowel or other surgery. Your doctor will provide you with a permanent care to carry describing this precaution. IMPORTANT: * REMEMBER TO TAKE ASPIRIN, 81 MG, TWICE DAILY FOR 4 WEEKS UNLESS OTHERWISE DIRECTED. THIS IS YOUR BLOOD THINNER. * HIGH RISK PATIENTS MAY BE PRESCRIBED A STRONGER BLOOD THINNER. THIS WILL BE PROVIDED AT DISCHARGE. * CALL IF INCREASED PAIN, REDNESS, DRAINAGE OR FEVER GREATER THAT 101. * WEAR VIKRAM HOSE 20 HOURS PER DAY FOR 2 WEEKS. * DERMABOND Prineo- This is a mesh tape dressing that is covered with glue. It should remain in place until the incision is properly healed, usually 10-14 days. This dressing is designed to naturally slough off. You may trim the excess mesh tape as it peels off. Incision may be briefly wet in a shower. Dry immediately by blotting with a clean, dry towel. Do not bath or swim until instructed by your doctor. Do not scratch, rub, or pick at the dressing. Do not apply any topical ointments or lotions until dressing is completely removed and/or instructed by your doctor. There may be a small piece of suture material at one end of your incision. Do not pull or trim this. If it is bothersome or catching on clothing, you may cover it with a band-aid. FOLLOW UP VISIT: If appointment is not already scheduled: Please call [facility] to make a follow-up appointment for 2 weeks after your surgery at .
[2016-09-07] MEDS ORDERED: CeleBREX 200 MG CAP PO SCH (21:00)
== END 2016-09-04 14:30 | disposition home health service (06) | DRG 470 ==
LOC: C.ACU 07:15 → C.3E 08:00 → ENRESERV 11:53
PROVIDERS: ADMIT Orthopaedic Surgery; ATTEND Orthopaedic Surgery
PROC: 0SRD0J9 Replacement of Left Knee Joint with Synthetic Substitute, Cemented, Open Approach (ICD-10-PCS; principal; 2016-09-02 09:15)
DX: M17.12 Unilateral primary osteoarthritis, left knee (principal); I12.9 Hypertensive chronic kidney disease with stage 1 through stage 4 chronic kidney disease, or unspecified chronic kidney disease; K21.9 Gastro-esophageal reflux disease without esophagitis; E78.00 Pure hypercholesterolemia, unspecified; N18.9 Chronic kidney disease, unspecified; G62.9 Polyneuropathy, unspecified; D64.9 Anemia, unspecified; G47.33 Obstructive sleep apnea (adult) (pediatric); N31.9 Neuromuscular dysfunction of bladder, unspecified; R20.0 Anesthesia of skin; E66.9 Obesity, unspecified; Z68.26 Body mass index [BMI] 26.0-26.9, adult; Z79.2 Long term (current) use of antibiotics; Z79.899 Other long term (current) drug therapy; Z87.891 Personal history of nicotine dependence; Z92.21 Personal history of antineoplastic chemotherapy

== ENCOUNTER → 2016-12-22 | Outpatient (CLI) | payer OTHER, BC ==
[~2016-12-22] MED LIST changes: +ACET-24 PO; -ACETAMINOPHEN 500 MG TAB PO SCH; +ASPI325T45 PO; +ATOR10TA82 PO; -ATOR10TA88 PO; -CEFAZOLIN 2000 MG/60 ML D5W 60 ML IV SCH; +CLB200 PO; -CeleBREX 200 MG CAP PO SCH; -DEXAMETHASONE 4 MG TAB PO SCH; -FAMOTIDINE 20 MG TAB PO SCH; -GABAPENTIN 300 MG CAP PO SCH; -LACTATED RINGER'S 1000ML 1,000 ML IV SCH; -LACTATED RINGER'S 1000ML 500 ML IV ONE; -LACTATED RINGER'S 1000ML IV SCH; -METOCLOPRAMIDE HCL 10 MG TAB PO SCH; +OXYSR10 PO; -ROPIVACAINE 5MG/ML 30 ML 150 MG, BUPIVACAINE/EPINEPHR 0.5% MPF 30 ML, KETOROLAC TROMETH... INFIL SCH; +RXC5 PO
--- NOTE | 2016-12-22 12:54 | DIAGNOSTIC IMAGING REPORT ---
(RENAL)RETROPERITON COMP CLINICAL HISTORY: 66 years-old Female presenting with N13.30 Hydronephrosis latex [id number]. TECHNIQUE: Real-time grayscale and limited color Doppler ultrasound imaging of the kidneys and bladder was performed. COMPARISON: CT from 11/27/2015 and ultrasound from 01/16/2016. FINDINGS: Right kidney: Normal echogenicity. Right kidney measures 10.9 cm. No hydronephrosis. No convincing evidence of calculus or mass. Normal perfusion. Left kidney: Normal echogenicity. Left kidney measures 11.5 cm. No hydronephrosis. No convincing evidence of calculus or mass. Normal perfusion. Bladder: No bladder wall thickening. Bilateral ureteral jets present. Possible bladder diverticulum noted. Other: Hyperechogenicity of the liver could suggest hepatic steatosis.. IMPRESSION: 1. No hydronephrosis. Essentially normal renal ultrasound. 2. Suggestion of hepatic steatosis. Electronically signed by: Gregorio Blackburn M.D. 12/22/2016 12:53 PM Dictated Date/Time: 12/22/2016 12:50 PM
== END | disposition home or self-care (01) ==
LOC: C.ULTR 12:12
PROVIDERS: ATTEND Urology
DX: N13.30 Unspecified hydronephrosis (principal)